=== PATIENT | female | born 1955 | race Caucasian/White ===

== ENCOUNTER 2019-04-06 11:24 | Inpatient (IN) | payer MEDICARE, MEDICAID ==
[~2019-04-06] VITALS: Ht 157.5 cm; Wt 64.4 kg
[2019-04-06 11:59] LABS: BASOPHILS % 0.5 % (0.0-2.0); EOSINOPHILS % 5.6 % (0.0-5.0); HEMATOCRIT. 43.6 % (36.0-48.0); HEMOGLOBIN. 14.7 g/dL (12.0-16.0); LYMPHOCYTES % 18.8 % (20.0-50.0); MEAN CORPUSCULAR HEMOGLOBIN 30.8 pg (28.0-32.0); MEAN CORPUSCULAR VOLUME 91.3 fL (81.0-99.0); MEAN PLATELET VOLUME 7.3 fl (7.4-10.4); MONOCYTES % 7.3 % (2.0-8.0); NEUTROPHILS % 67.8 % (40.0-76.0); PLATELET 253 x1000/uL (130-400); RED BLOOD CELL COUNT 4.78 mill/uL (4.2-5.4); RED CELL DISTRIBUTION WIDTH 14.5 % (11.6-14.6)
[2019-04-06 12:05] LABS: CHLORIDE 106 mEq/L (98-107)
[2019-04-06] MEDS ORDERED: ALBUTEROL (0.083%) 2.5MG/3ML NEB HHN STA (12:14)
[2019-04-06] MEDS ORDERED: MAGNESIUM 2 G PREMIX 50 ML IV STA (12:14)
[2019-04-06] MEDS ORDERED: IPRATROPIUM BROMIDE (0.02%) 0.5MG/2.5ML NEB HHN STA (12:14)
[2019-04-06] MEDS ORDERED: METHYLPREDNISOLONE SOD SUCC 125 MG/2 ML VIAL IV STA (12:14)
[2019-04-06] MEDS ORDERED: ONDANSETRON HCL 4MG/2ML INJ IV ONE (12:30)
[2019-04-06] MEDS ORDERED: LEVOFLOXACIN 500MG PREMIX 100 ML IV ONE (12:30)
[2019-04-06] MEDS ORDERED: MORPHINE SULFATE 4 MG/ML CPJ (NOT FOR IM USE) IV ONE (12:30)
[2019-04-06] MEDS ORDERED: SODIUM CHLORIDE 0.9% 1,000 ML IV ONE (16:14)
[2019-04-06] MEDS ORDERED: MAGNESIUM/ALUMINUM HYDROXIDE/SIMETHICONE 30ML UDC PO PRN (18:30)
[2019-04-06] MEDS ORDERED: IPRATROPIUM/ALBUTEROL 0.5-3(2.5)MG/3ML NEB NEB PRN (18:30)
[2019-04-06] MEDS ORDERED: CLONIDINE 0.1MG TABLET PO PRN (18:30)
[2019-04-06] MEDS ORDERED: DIPHENHYDRAMINE 50MG/ML VIAL IV PRN (18:30)
[2019-04-06] MEDS ORDERED: ACETAMINOPHEN 325MG TABLET PO PRN (18:30)
[2019-04-06] MEDS ORDERED: LORAZEPAM 0.5MG TABLET PO PRN (18:30)
[2019-04-06] MEDS ORDERED: ONDANSETRON HCL 4MG/2ML INJ IV PRN (18:30)
[2019-04-06] MEDS ORDERED: IOHEXOL-350 100 ML BOTTLE ONE (19:45)
[2019-04-06 22:30] VITALS: BP 98/60
[2019-04-07] MEDS: METHYLPREDNISOLONE SOD SUCC 125 MG/2 ML VIAL IV SCH ×4 (00:12→22:17)
[2019-04-07] MEDS: SODIUM CHLORIDE 0.9% INJ 3ML FLUSH IVF SCH ×4 (00:12→22:18)
[2019-04-07] MEDS: FAMOTIDINE 20MG/2ML VIAL IV SCH ×3 (00:12→22:17)
[2019-04-07] MEDS: GUAIFENESIN 200MG/10ML SUGAR FREE UDC PO PRN ×2 (01:11→06:17)
[2019-04-07] MEDS ORDERED: ATOR-2 PO (03:19)
[2019-04-07] MEDS ORDERED: ASPI-1393 PO (03:20)
[2019-04-07 04:00] VITALS: BP 98/62
[2019-04-07 08:00] VITALS: BP 99/59
[2019-04-07] MEDS: ENOXAPARIN 40MG/0.4ML SYR SUBCUT SCH (09:04)
[2019-04-07] MEDS: ASPIRIN 325MG EC TABLET PO SCH (09:04)
[2019-04-07 12:00] VITALS: BP 95/57
[2019-04-07] MEDS: LEVOFLOXACIN 500MG TABLET PO SCH (13:39)
[2019-04-07] MEDS ORDERED: GUAIFENESIN/CODEINE 200-20MG/10ML UDC PO PRN (16:00)
[2019-04-07 16:43] VITALS: BP 88/55
[2019-04-07 20:00] VITALS: BP_SYST 99
[2019-04-07] MEDS: IPRATROPIUM/ALBUTEROL 0.5-3(2.5)MG/3ML NEB HHN SCH (20:23)
[2019-04-07] MEDS: ATORVASTATIN CALCIUM 20MG TABLET PO SCH (22:17)
[2019-04-08 00:07] VITALS: BP 104/60
[2019-04-08] MEDS: IPRATROPIUM/ALBUTEROL 0.5-3(2.5)MG/3ML NEB HHN SCH ×4 (00:58→21:31)
[2019-04-08 04:00] VITALS: BP 90/56
[2019-04-08] MEDS: METHYLPREDNISOLONE SOD SUCC 125 MG/2 ML VIAL IV SCH ×3 (06:34→21:30)
[2019-04-08] MEDS: SODIUM CHLORIDE 0.9% INJ 3ML FLUSH IVF SCH ×3 (06:35→22:47)
[2019-04-08 08:00] VITALS: BP 103/58
[2019-04-08] MEDS: FAMOTIDINE 20MG/2ML VIAL IV SCH ×2 (09:00→22:31)
[2019-04-08] MEDS: ASPIRIN 325MG EC TABLET PO SCH (09:51)
[2019-04-08] MEDS: BENZONATATE 100MG CAPSULE PO SCH ×3 (09:51→15:50)
[2019-04-08] MEDS: ENOXAPARIN 40MG/0.4ML SYR SUBCUT SCH (09:52)
[2019-04-08] MEDS: LEVOFLOXACIN 500MG TABLET PO SCH (11:00)
[2019-04-08 12:00] VITALS: BP 98/57
[2019-04-08 17:24] VITALS: BP 100/61
[2019-04-08 20:00] VITALS: BP 106/68
[2019-04-08] MEDS: ATORVASTATIN CALCIUM 20MG TABLET PO SCH (22:47)
[2019-04-09 00:04] VITALS: BP 101/61
[2019-04-09] MEDS: BENZONATATE 100MG CAPSULE PO SCH ×2 (00:55→09:18)
[2019-04-09] MEDS: IPRATROPIUM/ALBUTEROL 0.5-3(2.5)MG/3ML NEB HHN SCH ×3 (02:47→15:20)
[2019-04-09 04:00] VITALS: BP 104/66
[2019-04-09] MEDS: METHYLPREDNISOLONE SOD SUCC 125 MG/2 ML VIAL IV SCH ×2 (06:25→15:13)
[2019-04-09] MEDS: SODIUM CHLORIDE 0.9% INJ 3ML FLUSH IVF SCH ×2 (06:27→15:13)
[2019-04-09 08:00] VITALS: BP 123/72
[2019-04-09] MEDS: ASPIRIN 325MG EC TABLET PO SCH (09:18)
[2019-04-09] MEDS: ENOXAPARIN 40MG/0.4ML SYR SUBCUT SCH (09:19)
[2019-04-09] MEDS: FAMOTIDINE 20MG/2ML VIAL IV SCH (10:12)
[2019-04-09] MEDS: LEVOFLOXACIN 500MG TABLET PO SCH (11:48)
[2019-04-09 12:00] VITALS: BP 131/65
[2019-04-09 14:58] VITALS: BP 131/65
== END 2019-04-09 16:08 | disposition home or self-care (01) | DRG 193 ==
LOC: ER 11:24 → 7WST 13:02 → EDBEDREQ 13:10 → EDBEDREQTM 13:10 → ENRESERV 20:55
PROVIDERS: ADMIT Internal Medicine; ATTEND Internal Medicine
DX: J18.9 Pneumonia, unspecified organism (principal); J96.00 Acute respiratory failure, unspecified whether with hypoxia or hypercapnia; J84.10 Pulmonary fibrosis, unspecified; I25.10 Atherosclerotic heart disease of native coronary artery without angina pectoris; E78.00 Pure hypercholesterolemia, unspecified; E78.5 Hyperlipidemia, unspecified; G89.29 Other chronic pain; M54.9 Dorsalgia, unspecified; Z87.11 Personal history of peptic ulcer disease; Z95.5 Presence of coronary angioplasty implant and graft; Z99.81 Dependence on supplemental oxygen; Z79.899 Other long term (current) drug therapy; Z79.82 Long term (current) use of aspirin
CPT/HCPCS: 36415; 71045; 71275; 83605; 83880; 84484; 93005; 94640; 94644; 99291; J1650; J1956; J2270; J2405; J2930; J3475; J3490; J7030; J7611; J7620; Q9967